=== PATIENT | female | born 1975 | race Caucasian/White ===

== ENCOUNTER 2017-12-08 08:58 | Emergency (ER) | payer OTHER ==
[~2017-12-08] VITALS: Ht 170.2 cm; Wt 87.8 kg
[2017-12-08 09:39] VITALS: BP 122/82
[2017-12-08 09:40] LABS: HEMATOCRIT 38.6 % (36.0-46.0); HEMOGLOBIN 13.1 G/DL (11.9-15.5); MCH 31.2 PG (29.0-34.0); MCHC 33.9 G/DL (30.0-36.0); MCV 91.9 FL (83-99); PLATELET COUNT 237 K/uL (156-360); RBC DIS.WIDTH-CV 12.6 % (11.8-14.6); RBC DIS.WIDTH-SD 42.4 % (39-53); WHITE BLOOD COUNT 5.2 K/uL (4.1-10.2)
[2017-12-08 09:50] LABS: ALBUMIN 4.3 g/dL (3.2-4.8); CHLORIDE 107 mEq/L (99-109); POTASSIUM 4.5 mEq/L (3.7-5.4); SODIUM 139 mEq/L (136-147)
[2017-12-08 09:53] LABS: GLUCOSE 94 mg/dL (70-99); TOTAL PROTEIN 7.4 g/dL (6.4-8.3)
[2017-12-08 09:55] LABS: TOTAL BILIRUBIN 0.7 mg/dL (0.0-1.0)
[2017-12-08 09:56] LABS: ALKALINE PHOSPHATASE 66 IU/L (3-129); CREATININE 0.8 mg/dL (0.6-1.3); GFR ESTIMATE (CALCULATED) > 59 mL/min/
[2017-12-08 09:57] LABS: UREA NITROGEN (BUN) 9 mg/dL (9-23)
[2017-12-08 09:58] LABS: AST (GOT) 15 IU/L (2-34)
[2017-12-08 09:59] LABS: ALT (GPT) 12 IU/L (3-49)
== END 2017-12-08 09:30 | disposition home or self-care (01) ==
LOC: EME 08:58
PROVIDERS: Emergency Medicine Emergency Medical Services
DX: Z77.21 Contact with and (suspected) exposure to potentially hazardous body fluids (principal); W46.1XXA Contact with contaminated hypodermic needle, initial encounter; Y99.0 Civilian activity done for income or pay; Z85.72 Personal history of non-Hodgkin lymphomas
CPT/HCPCS: 80053; 85027; 99281; 99283